=== PATIENT | male | born 1990 | race Caucasian/White ===

== ENCOUNTER 2023-12-07 09:36 | Emergency (ER) | payer SELFPAY ==
[2023-12-07 09:58] VITALS: BP 136/81; PULSE 81; RESP 19; TEMP 36.3; O2SAT 99; BMI 25.1
--- NOTE | 2023-12-07 11:09 | ED_ITS ---
HPI - Back Pain/Injury <Lu Alvarado PA-C - Last Filed: 12/07/23 18:09> General Chief Complaint: Back Pain/Injury Stated Complaint: severe back pain Time Seen by Provider: 12/07/23 11:05 Source: patient History of Present Illness HPI Narrative: 33-year-old male here today for low back pain. States he was moving boxes and heavy furniture all day yesterday. 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 States he feels some numbness and tingling in his buttocks and a little bit in the posterior thighs bilaterally but none down his legs and into his feet. He denies any weakness in his feet when walking. He denies any bowel or bladder incontinence or difficulties. No prior back injuries or surgeries. He tried taking Tylenol last night but no other medications taken. States he is unable to straighten his back fully when standing but he is able to walk hunched over slightly. States certain movements provoke pain. No history of IV drug use, chronic steroid use. Denies trauma to the back Related Data Previous Rx's Medication Instructions Recorded cyclobenzaprine 7.5 mg tablet 7.5 mg PO TID PRN muscle spasm #30 12/07/23 tabs ibuprofen 600 mg tablet 600 mg PO Q6H PRN pain #30 tabs 12/07/23 Allergies Allergy/AdvReac Type Severity Reaction Status Date / Time No Known Drug Allergies Allergy Verified 12/07/23 10:02 Review of Systems <Lu Alvarado PA-C - Last Filed: 12/07/23 18:09> Review of Systems ROS Unobtainable: All systems reviewed & are unremarkable except as noted in HPI and below Patient History <Lu Alvarado PA-C - Last Filed: 12/07/23 18:09> Social History Smoking Status: Never smoker Smoking Status: Never smoker alcohol intake frequency: 0-2 drinks per day Substance Use Type: does not use Exam <Lu Alvarado PA-C - Last Filed: 12/07/23 18:09> Narrative Exam Narrative: GENERAL: Well-developed, well-nourished, appears stated age. In no acute distress HEAD: Atraumatic. Normocephalic. EYES: Pupils equal round and reactive. Extraocular motions intact. No scleral icterus. No injection or drainage. ENT: Nose without bleeding, purulent drainage. Airway patent. NECK: Trachea midline. Non tender RESPIRATORY: Respiratory rate and effort normal EXTREMITIES: No edema or joint tenderness. BACK: Spine is midline, nontender, no step-offs or deformity. No crepitus. Range of motion is limited due to pain. Patient unable to complete full extension. Flexion and rotation are limited as well due to pain. NEURO: AOx3. Normal strength and sensation in bilateral lower extremities. No footdrop. Ambulating independently. SKIN: No rash or erythema of visible areas Initial Vital Signs Initial Vital Signs: Vital Signs Temperature 97.4 F L 12/07/23 09:58 Pulse Rate 81 12/07/23 09:58 Respiratory Rate 19 12/07/23 09:58 Blood Pressure 136/81 12/07/23 09:58 Pulse Oximetry 99 12/07/23 09:58 Oxygen Delivery Method Room Air 12/07/23 09:58 <Shannon Quan MD - Last Filed: 12/08/23 07:21> Initial Vital Signs Initial Vital Signs: Vital Signs Temperature 97.4 F L 12/07/23 09:58 Pulse Rate 81 12/07/23 09:58 Respiratory Rate 19 12/07/23 09:58 Blood Pressure 136/81 12/07/23 09:58 Pulse Oximetry 99 12/07/23 09:58 Oxygen Delivery Method Room Air 12/07/23 09:58 Course <Lu Alvarado PA-C - Last Filed: 12/07/23 18:09> Orders Ordered: Discontinued Medications Ketorolac Tromethamine (Ketorolac 30 Mg/Ml Vial) 30 mg IM NOW ONE Stop: 12/07/23 11:40 Last Admin: 12/07/23 11:46 Dose: 30 mg Documented By: ANAND Vital Signs Vital signs: Vital Signs - 8 hr 12/07/23 09:58 12/07/23 11:47 Temperature 97.4 F L Pulse Rate 81 65 Respiratory Rate 19 20 Blood Pressure 136/81 115/70 Pulse Oximetry 99 98 Oxygen Delivery Method Room Air Room Air <Shannon Quan MD - Last Filed: 12/08/23 07:21> Orders Ordered: Discontinued Medications Ketorolac Tromethamine (Ketorolac 30 Mg/Ml Vial) 30 mg IM NOW ONE Stop: 12/07/23 11:40 Last Admin: 12/07/23 11:46 Dose: 30 mg Documented By: ANAND Vital Signs Vital signs: Vital Signs - 8 hr 12/07/23 09:58 12/07/23 11:47 Temperature 97.4 F L Pulse Rate 81 65 Respiratory Rate 19 20 Blood Pressure 136/81 115/70 Pulse Oximetry 99 98 Oxygen Delivery Method Room Air Room Air MDM - Back Pain/Injury <Lu Alvarado PA-C - Last Filed: 12/07/23 18:09> MDM Narrative Medical decision making narrative: Patient's examination reveals no neurologic deficits, normal sensation and strength in bilateral lower extremities, no foot drop. He has no concerning risk factors such as previous IV drug use, prolonged steroid use, history of cancer or other immunosuppression, or prior back surgeries or injuries. He has no saddle anesthesia or bowel or bladder incontinence. He is able to ambulate independently although his range of motion is definitely impaired due to pain. Due to patient having no red flag symptoms or major risk factors, imaging and labs are not indicated at this time. Discussed conservative management with patient. Toradol 30 mg IM given today. Recommend muscle relaxers as well as ibuprofen 600 mg every 6-8 hours (start ibuprofen tomorrow due to Toradol shot today). Also discussed lidocaine patches, ice/heat and other pain relief modalities. We discussed the typical course for acute low back pain and when to follow up with his primary care physician if the pain is not improving or if it is worsening. Multiple etiologies for patient's symptoms considered including, but not limited to: Acute low back pain, herniated disc, sciatica, lumbar radiculopathy Findings and discharge diagnosis discussed with patient/family followed by verbalization of understanding Return precautions discussed with patient/family whom verbalize understanding of diagnosis and plan Discharge Plan Departure Patient Disposition: Home Clinical Impression: Acute low back pain Qualifiers: Back pain laterality: midline Sciatica presence: with sciatica Sciatica laterality: bilateral sciatica Qualified Code(s): M54.42 - Lumbago with sciatica, left side Instructions: DI for Back Pain With Sciatica, DI for Back Spasm Activity Restrictions/Additional Instructions: Thank you for choosing us to care for you today. You were seen today for low back pain. Your examination and history do not indicate any red flag symptoms and no imaging such as x-rays are indicated at this time. You were given an injection called Toradol for your pain today. Please do not take any ibuprofen or Aleve for at least 12 hours following the injection. You may take Tylenol in the meantime. Please take muscle relaxer as needed for your back pain but do not take it when you will be driving or operating heavy machinery. Please also consider using lidocaine patches which are available [id number]. In 2-3 days please start doing gentle range of motion and stretching exercises as tolerated. If you continue to have back pain that is worsening or not improving after 7-10 days please follow up with her primary care physician to discuss. Prescriptions: New cyclobenzaprine 7.5 mg tablet 7.5 mg PO TID PRN (Reason: muscle spasm) Qty: 30 0RF ibuprofen 600 mg tablet 600 mg PO Q6H PRN (Reason: pain) Qty: 30 0RF Stand Alone Forms: Patient Portal/API, Work Release Note ED Sign-out <Shannon Quan MD - Last Filed: 12/08/23 07:21> [facility]: I was immediately available in the department for consultation throughout this patient's visit. Shannon Quan MD
[2023-12-07] MEDS: KETOROLAC 30 MG/ML VIAL IM (11:46)
[2023-12-07 11:47] VITALS: BP 115/70; PULSE 65; RESP 20; O2SAT 98
== END 2023-12-07 11:53 | disposition home or self-care (01) ==
PROVIDERS: Emergency Provider Physician Assistant
DX: M54.42 Lumbago with sciatica, left side (principal)
CPT/HCPCS: 96372; 99283; J1885